=== PATIENT | female | born 2000 | race African-American/Black ===

== ENCOUNTER 2019-06-05 01:54 | Emergency (ER) | payer MEDICAID ==
[~2019-06-05] VITALS: Ht 167.6 cm; Wt 52.2 kg
[2019-06-05 02:08] VITALS: BP 108/75
--- NOTE | 2019-06-05 02:30 | NUR ---
ED Nurse Note: Recieved pt from home, here with c/oo right foot pain and swelling since am, thinks is spider bite, pain at 7/10, mild swelling noted, all pulses are present, denies fevers, vomiting or any other discomforts or complants, pt is ambulatory, mother present with her.
[2019-06-05] MEDS ORDERED: Cephalexin 500mg cap ORAL ONE (03:00)
[2019-06-05] MEDS ORDERED: Cephalexin 500mg cap ONE (03:01)
--- NOTE | 2019-06-05 03:15 | NUR ---
ED Nurse Note: ER DISCHARGE NOTE: Patient is cleared to be discharged per ERMD, pt is aox4, on room air, with stable vital signs. pt was given dc and prescription instructions, pt was able to verbalize understanding, pt id band removed without complications. pt is able to ambulate with steady gait. pt took all belongings. no s/s of adverse reaction noted.
[2019-06-05] MEDS ORDERED: BENADRYL25 MG ORAL (03:27)
[2019-06-05] MEDS ORDERED: MEDROL DOSEPAK4 MG ORAL (03:27)
[2019-06-05] MEDS ORDERED: CEPHALEXIN500 MG ORAL (03:27)
--- NOTE | 2019-06-05 03:35 | Emergency Room Report ---
History of Present Illness General Chief Complaint: Lower Extremity Injury Source: Patient Present Illness HPI Patient presents with complaints of swelling and redness to her right foot reports that this started this morning Denies any fevers or chills she does feel some tenderness with touch patient is here with family who reports that the patient has been getting multiple insect bites Denies any calf pain or swelling denies any other trauma such as fall Or twisting denies any upper leg pain denies any cramping Allergies: Coded Allergies: No Known Allergies (Unverified , 06/05/19) Patient History Past Medical History: see triage record Last Menstrual Period: 05-30-2019 Now: No Reviewed Nursing Documentation: PMH: Agreed; PSxH: Agreed Nursing Documentation-PMH Past Medical History: No Stated History Review of Systems All Other Systems: negative except mentioned in HPI Physical Exam Vital Signs Date Time Temp Pulse Resp B/P (MAP) Pulse Ox O2 Delivery O2 Flow Rate FiO2 06/05/19 02:08 98.2 76 16 108/75 (86) 98 Room Air Sp02 EP Interpretation: reviewed, normal General Appearance: well appearing, no apparent distress Head: normocephalic, atraumatic Eyes: bilateral eye PERRL, bilateral eye EOMI ENT: hearing grossly normal, normal pharynx Neck: supple Respiratory: lungs clear, no respiratory distress, no retraction Cardiovascular #1: regular rate, rhythm Gastrointestinal: non tender, soft Musculoskeletal: swelling - Right foot Neurologic: alert, oriented x3, responsive Skin: other - There is some swelling and erythema noted to the lateral aspect of the right foot, hemodynamically intact appropriate pulses moving all digits without evidence of compartment syndrome the calf area is not involved Lymphatic: no adenopathy Medical Decision Making Diagnostic Impression: Primary Impression: insect bite Additional Impression: cellulitis ER Course Given the above history and exam findings do appear to be consistent with likely insect bite and secondary cellulitis patient is treated Initially in the emergency room and will have continued close outpatient follow- up and antibiotics at home and return with any changes or concern Last Vital Signs Date Time Temp Pulse Resp B/P (MAP) Pulse Ox O2 Delivery O2 Flow Rate FiO2 06/05/19 02:08 98.2 76 16 108/75 (86) 98 Room Air Status: improved Disposition: HOME, SELF-CARE Condition: Improved Scripts Diphenhydramine Hcl* (BENADRYL*) 25 Mg Capsule 25 MG ORAL Q6H PRN for Itching for 7 Days, CAP Prov: Ophelia Valdez DO 06/05/19 Methylprednisolone (Methylprednisolone*) 4MG Dspk 4 MG ORAL DIRECTED for 6 Days, #21 EA 0 Refills Day 1: Two tablets before breakfast, one after lunch, one after dinner, and two at bedtime. If started late in the day, take all six tablets at once or divide into two or three doses, unless otherwise directed by prescriber. Day 2: One tablet before breakfast, one after lunch, one after dinner, and two at bedtime Day 3: One tablet before breakfast, one after lunch, one after dinner, and one at bedtime Day 4: One tablet before breakfast, one after lunch, and one at bedtime Day 5: One tablet before breakfast and one at bedtime Day 6: One tablet before breakfast Prov: Ophelia Valdez DO 06/05/19 Cephalexin* (KEFLEX*) 500 Mg Capsule 500 MG ORAL EVERY 6 HOURS for 7 Days, CAP Prov: Ophelia Valdez DO 06/05/19 Referrals: [facility] Kevin May. [facility] Patient Instructions: Cellulitis, [id number], Insect Bite, [id number] Additional Instructions: Patient is provided with the discharge instructions notified to follow up with primary doctor in the next 2-3 days otherwise return to the er with any worsening symptoms. Please note that this report is being documented using DRAGON technology. This can lead to erroneous entry secondary to incorrect interpretation by the dictating instrument. Ophelia Valdez DO Jun 05, 2019 03:35
== END 2019-06-05 03:15 | disposition home or self-care (01) ==
LOC: EMR 02:47
DX: S90.861A Insect bite (nonvenomous), right foot, initial encounter (principal); L03.115 Cellulitis of right lower limb; W57.XXXA Bitten or stung by nonvenomous insect and other nonvenomous arthropods, initial encounter; Y92.9 Unspecified place or not applicable
CPT/HCPCS: J7512; Z7502; 99282